=== PATIENT | female | born 1990 | race Two or more races ===

== ENCOUNTER 2021-05-23 15:25 | Inpatient (IN) | payer OTHER ==
[~2021-05-23] VITALS: Ht 162.6 cm; Wt 57.6 kg
[2021-05-23] MEDS ORDERED: PRENATAL TABLE1 EAC1 PO (18:12)
== END 2021-05-27 10:09 | disposition home or self-care (01) | DRG 833 ==
LOC: NST 15:25 → LDR 16:50
PROVIDERS: ADMIT Obstetrics & Gynecology; ATTEND Obstetrics & Gynecology
PROC: 4A1HXFZ Monitoring of Products of Conception, Cardiac Rhythm, External Approach (ICD-10-PCS; principal; 2021-05-23)
PROC: BY4CZZZ Ultrasonography of Second Trimester, Single Fetus (ICD-10-PCS; 2021-05-26)
DX: O47.02 False labor before 37 completed weeks of gestation, second trimester (principal); Z3A.25 25 weeks gestation of pregnancy; Z20.822 Contact with and (suspected) exposure to COVID-19

== ENCOUNTER 2021-06-01 10:33 | Outpatient (CLI) | payer OTHER ==
[~2021-06-01 10:33] MED LIST: PRENATAL TABLE1 EAC1 PO
== END 2021-06-01 11:59 | disposition home or self-care (01) ==
LOC: NST 10:33
PROVIDERS: ATTEND Obstetrics & Gynecology
DX: Z34.83 Encounter for supervision of other normal pregnancy, third trimester (principal)

== ENCOUNTER 2021-06-06 10:09 | Outpatient (CLI) | payer OTHER | END 2021-06-06 11:07 | disposition home or self-care (01) | LOC: NST 10:09 | PROVIDERS: ATTEND Obstetrics & Gynecology Maternal & Fetal Medicine | DX: Z34.83 Encounter for supervision of other normal pregnancy, third trimester (principal) ==

== ENCOUNTER 2021-06-13 11:19 | Outpatient (CLI) | payer OTHER | END 2021-06-13 12:18 | disposition home or self-care (01) | LOC: NST 11:19 | PROVIDERS: ATTEND Obstetrics & Gynecology | DX: Z34.83 Encounter for supervision of other normal pregnancy, third trimester (principal) ==

== ENCOUNTER 2021-06-22 09:37 | Outpatient (CLI) | payer OTHER | END 2021-06-22 10:28 | disposition home or self-care (01) | LOC: NST 09:37 | PROVIDERS: ATTEND Obstetrics & Gynecology Maternal & Fetal Medicine | DX: Z34.83 Encounter for supervision of other normal pregnancy, third trimester (principal) ==

== ENCOUNTER 2021-07-06 10:33 | Outpatient (CLI) | payer OTHER | END 2021-07-06 11:39 | disposition home or self-care (01) | LOC: NST 10:33 | PROVIDERS: ATTEND Obstetrics & Gynecology | DX: Z34.83 Encounter for supervision of other normal pregnancy, third trimester (principal) ==

== ENCOUNTER → 2021-07-27 | Outpatient (CLI) | payer OTHER | END | disposition home or self-care (01) | LOC: NST 15:20 | PROVIDERS: ATTEND Obstetrics & Gynecology Maternal & Fetal Medicine | DX: Z34.83 Encounter for supervision of other normal pregnancy, third trimester (principal) ==

== ENCOUNTER 2021-08-15 14:32 | Outpatient (CLI) | payer OTHER | END 2021-08-15 14:52 | disposition home or self-care (01) | LOC: NST 14:32 | PROVIDERS: ATTEND Obstetrics & Gynecology Maternal & Fetal Medicine | DX: Z34.83 Encounter for supervision of other normal pregnancy, third trimester (principal) ==

== ENCOUNTER 2021-08-28 06:25 | Outpatient (CLI) | payer OTHER | END 2021-08-28 08:14 | disposition home or self-care (01) | LOC: NST 06:25 | PROVIDERS: ATTEND Obstetrics & Gynecology | DX: Z34.83 Encounter for supervision of other normal pregnancy, third trimester (principal) ==

== ENCOUNTER 2021-08-29 00:36 | Inpatient (IN) | payer OTHER ==
[~2021-08-29] VITALS: Ht 162.6 cm; Wt 2.7 kg
[2021-08-30] MEDS ORDERED: NIFEDIPINE ER60 M1 (16:30)
== END 2021-08-31 13:57 | disposition home or self-care (01) | DRG 788 ==
LOC: SURG-SUITE 00:36 → LDR 00:36 → SURG-SUITE 06:45
PROVIDERS: ADMIT Obstetrics & Gynecology; ATTEND Obstetrics & Gynecology
PROC: 10907ZC Drainage of Amniotic Fluid, Therapeutic from Products of Conception, Via Natural or Artificial Opening (ICD-10-PCS; 2021-08-29)
PROC: 4A1HXFZ Monitoring of Products of Conception, Cardiac Rhythm, External Approach (ICD-10-PCS; 2021-08-29)
PROC: 10D00Z1 Extraction of Products of Conception, Low, Open Approach (ICD-10-PCS; principal; 2021-08-29 05:15)
DX: O62.1 Secondary uterine inertia (principal); O64.0XX0 Obstructed labor due to incomplete rotation of fetal head, not applicable or unspecified; Z3A.38 38 weeks gestation of pregnancy; Z37.0 Single live birth

== ENCOUNTER 2023-04-05 12:24 | Outpatient (CLI) | payer OTHER ==
[~2023-04-05 12:24] MED LIST changes: +NIFEDIPINE ER60 M1
== END 2023-04-05 13:21 | disposition home or self-care (01) ==
LOC: NST 12:24
PROVIDERS: ATTEND Obstetrics & Gynecology
DX: Z34.83 Encounter for supervision of other normal pregnancy, third trimester (principal)

== ENCOUNTER 2023-04-15 20:16 | Inpatient (IN) | payer OTHER ==
[~2023-04-15] VITALS: Ht 162.6 cm; Wt 2.3 kg
== END 2023-04-18 13:35 | disposition home or self-care (01) | DRG 788 ==
LOC: OB/GYN 20:16 → LDR 20:16 → OB/GYN 23:08
PROVIDERS: ADMIT Obstetrics & Gynecology; ATTEND Obstetrics & Gynecology
PROC: 4A1HXCZ Monitoring of Products of Conception, Cardiac Rate, External Approach (ICD-10-PCS; 2023-04-15)
PROC: 10D00Z1 Extraction of Products of Conception, Low, Open Approach (ICD-10-PCS; principal; 2023-04-15 21:00)
DX: O60.14X0 Preterm labor third trimester with preterm delivery third trimester, not applicable or unspecified (principal); O34.211 Maternal care for low transverse scar from previous cesarean delivery; Z3A.35 35 weeks gestation of pregnancy; Z37.0 Single live birth; Z20.822 Contact with and (suspected) exposure to COVID-19

== ENCOUNTER 2023-11-14 13:42 | Outpatient (CLI) | payer OTHER | END 2023-11-14 13:45 | disposition home or self-care (01) | LOC: SONOGRAMA 13:42 | PROVIDERS: ATTEND Pathology Anatomic Pathology & Clinical Pathology | DX: D34 Benign neoplasm of thyroid gland (principal); E07.89 Other specified disorders of thyroid; E04.2 Nontoxic multinodular goiter ==